=== PATIENT | female | born 1990 | race Caucasian/White ===

== ENCOUNTER 2018-08-03 00:27 | Emergency (ER) | payer SELFPAY ==
[~2018-08-03] VITALS: Ht 167.6 cm; Wt 59.0 kg
[2018-08-03 00:41] VITALS: BP 110/72
== END 2018-08-03 03:00 | disposition left against medical advice (07) ==
LOC: ER 01:17
DX: Z53.21 Procedure and treatment not carried out due to patient leaving prior to being seen by health care provider (principal)